=== PATIENT | male | born 1940 | race Asian ===

== ENCOUNTER 2023-03-19 19:51 | Inpatient (IN) | payer MEDICARE, OTHER ==
[~2023-03-19] VITALS: Ht 175.3 cm; Wt 92.2 kg
[2023-03-19 20:42] LABS: BASOPHILS % (AUTO) 0.2 % (0.0-2.0); EOSINOPHILS # (AUTO) 0.1 K/uL (0.0-0.7); EOSINOPHILS % (AUTO) 0.8 % (0.0-7.0); HEMATOCRIT 29.5 % (36.7-47.1); HEMOGLOBIN 9.6 g/dL (12.5-16.3); LYMPHOCYTES # (AUTO) 0.4 K/uL (0.8-4.8); LYMPHOCYTES % (AUTO) 2.6 % (20.5-51.5); MEAN CORPUSCULAR HEMOGLOBIN 31.4 uug (23.8-33.4); MEAN CORPUSCULAR HGB CONC 33 g/dL (32.5-36.3); MEAN CORPUSCULAR VOLUME 96.6 fL (73.0-96.2); MONOCYTES % (AUTO) 6.5 % (0.0-11.0); NEUTROPHILS # (AUTO) 13.4 K/uL (1.8-8.9); NEUTROPHILS % (AUTO) 89.9 % (38.5-71.5); PLATELET COUNT (AUTO) 181 K/uL (152-348); RED BLOOD CELL COUNT(AUTO) 3.05 MIL/uL (4.06-5.63); RED CELL DISTRIBUTION WIDTH 14.2 % (12.1-16.2); WHITE BLOOD COUNT (AUTO) 14.9 K/uL (3.6-10.2)
[2023-03-19 20:43] LABS: DIFFERENTIAL COMMENT 1
[2023-03-19] MEDS ORDERED: FURO40TA5 PO (21:08)
[2023-03-19] MEDS ORDERED: CHOL500062 PO (21:08)
[2023-03-19] MEDS ORDERED: BRIM5DRO11 OP (21:08)
[2023-03-19] MEDS ORDERED: INSU100I26 SQ ×2 (21:08)
[2023-03-19] MEDS ORDERED: CARV12.52 PO (21:08)
[2023-03-19] MEDS ORDERED: SITA100T PO (21:08)
[2023-03-19] MEDS ORDERED: BRIN10DR EACHEYE (21:08)
[2023-03-19] MEDS ORDERED: NETA2.5D3 LEFTEYE (21:08)
[2023-03-19] MEDS ORDERED: BRIN8DRO OP (21:08)
[2023-03-19] MEDS ORDERED: ATOR40TA PO (21:08)
[2023-03-19] MEDS ORDERED: GABA-532 PO (21:08)
[2023-03-19] MEDS ORDERED: CLON0.1T PO (21:08)
[2023-03-19] MEDS ORDERED: TIMO5DRO18 OP (21:08)
[2023-03-19] MEDS ORDERED: TAMS-3 PO (21:08)
[2023-03-19] MEDS ORDERED: ALLO100T PO (21:08)
[2023-03-19] MEDS ORDERED: CLOP75TA33 PO (21:08)
[2023-03-19 21:10] LABS: ALANINE AMINOTRANSFERASE 81 U/L (16-63); ALBUMIN 2.9 g/dL (3.4-5.0); ALKALINE PHOSPHATASE 225 U/L (50-136); ASPARTATE AMINOTRANSFERASE 51 U/L (15-37); BILIRUBIN,TOTAL 0.6 mg/dL (0.2-1.0); CALCIUM 8.5 mg/dL (8.5-10.1); CARBON DIOXIDE 25 mmol/L (21-32); CHLORIDE 99 mmol/L (98-107); CREATININE 3.9 mg/dL (0.6-1.3); GLUCOSE 199 mg/dL (74-106); NT-PRO BNP 3867 pg/mL (0-125); SODIUM SERUM 136 mmol/L (136-145); TOTAL PROTEIN, SERUM 6.5 g/dL (6.4-8.2)
[2023-03-19 21:16] LABS: UREA NITROGEN, BLOOD 100 mg/dL (7-18)
[2023-03-20] MEDS ORDERED: FUROSEMIDE 40 MG/4 ML VIAL IV ONE (00:15)
[2023-03-20] MEDS ORDERED: FUROSEMIDE 40 MG/4 ML VIAL ONE (00:30)
[2023-03-20] MEDS ORDERED: MAGNESIUM HYDROXIDE 30 ML LIQUID UDC PO PRN (01:45)
[2023-03-20] MEDS ORDERED: ACETAMINOPHEN 325 MG TABLET PO PRN (01:45)
[2023-03-20] MEDS ORDERED: REMEDY ESSENTIAL ZINC PASTE 113 GM TP PRN (01:45)
[2023-03-20] MEDS ORDERED: ONDANSETRON 4 MG/2 ML VIAL IV PRN (01:45)
[2023-03-20 02:56] LABS: *BILIRUBIN,URIN NEGATIVE (NEGATIVE); *BLOOD, URINE 3+ (NEGATIVE); *COLOR,URINE YELLOW (YELLOW); *KETONES,URINE NEGATIVE (NEGATIVE); *UROBILINOGEN,URINE 0.2 E.U./dl (NORMAL); LEUKOCYTE ESTERASE ,URINE 1+ (NEGATIVE); NITRITE, URINE NEGATIVE (NEGATIVE); PH,URINE 5.5 (5.0-8.0); UGLUCOSE NEGATIVE (NEGATIVE)
[2023-03-20 03:19] LABS: *CLARITY,URINE HAZY (CLEAR); *PROTEIN,URINE 3+ (NEGATIVE)
[2023-03-20 03:28] LABS: *AMPHETAMINE, URINE NEGATIVE (NEGATIVE); *BARBITURATE, URINE NEGATIVE (NEGATIVE); *BENZODIAZEPINE, URINE NEGATIVE (NEGATIVE); *CANNABINOID, URINE NEGATIVE (NEGATIVE); *COCCAINE, URINE NEGATIVE (NEGATIVE); *OPIATE, URINE NEGATIVE (NEGATIVE); *PHENCYCLIDINE SCREEN,URINE NEGATIVE (NEGATIVE)
[2023-03-20 03:29] LABS: FENTANYL, URINE NEGATIVE (NEGATIVE)
[2023-03-20 03:58] VITALS: BP 145/79; TEMP 97.5; O2SAT 95
[2023-03-20 06:58] LABS: BACTERIA,URINE MANY /HPF (NONE SEEN); RBC,URINE TNTC /HPF (0-3); SQUAMOUS EPITHELIAL CELL,UR NONE SEEN /HPF (NONE SEEN); WBC,URINE 20-50 /HPF (0-3)
[2023-03-20] MEDS ORDERED: PANTOPRAZOLE SODIUM 40 MG TABLET.DR PO SCH (07:00)
== END 2023-03-20 04:00 | disposition left against medical advice (07) | DRG 684 ==
LOC: ER 19:53 → TELE3 03-20 00:26
PROVIDERS: ADMIT Student in an Organized Health Care Education/Training Program; ATTEND Student in an Organized Health Care Education/Training Program
DX: N19 Unspecified kidney failure (principal); I50.9 Heart failure, unspecified; R41.82 Altered mental status, unspecified; Z53.29 Procedure and treatment not carried out because of patient's decision for other reasons; F03.90 Unspecified dementia, unspecified severity, without behavioral disturbance, psychotic disturbance, mood disturbance, and anxiety; I51.7 Cardiomegaly
CPT/HCPCS: 36415; 70450; 71045; 83605; 84484; 85025; 87040; G0378; J1940